=== PATIENT | male | born 1970 | race Caucasian/White ===

== ENCOUNTER 2023-07-03 10:33 | Emergency (ER) | payer MEDICAID ==
[~2023-07-03] VITALS: Ht 177.8 cm; Wt 106.6 kg
[2023-07-03 10:40] VITALS: BP_SYST 129; PULSE 70; RESP 17; TEMP 97.4; O2SAT 92
[2023-07-03 11:22] LABS: PROTHROMBIN TIME 9.9 SECS (9.5-12.5)
[2023-07-03 16:20] VITALS: BP_SYST 127; PULSE 78; RESP 20; TEMP 97.6; O2SAT 95
== END 2023-07-03 16:37 | disposition home or self-care (01) ==
LOC: SED 10:33
DX: T82.534A Leakage of infusion catheter, initial encounter (principal); M86.8X7 Other osteomyelitis, ankle and foot; I10 Essential (primary) hypertension; I25.2 Old myocardial infarction; E11.9 Type 2 diabetes mellitus without complications; E78.5 Hyperlipidemia, unspecified; Z98.890 Other specified postprocedural states; Y83.8 Other surgical procedures as the cause of abnormal reaction of the patient, or of later complication, without mention of misadventure at the time of the procedure; Y92.89 Other specified places as the place of occurrence of the external cause
CPT/HCPCS: 36415; 71045; 85610; 85730; 99285